=== PATIENT | male | born 1945 | race Caucasian/White ===

== ENCOUNTER 2016-09-08 00:27 | Emergency (ER) | payer MEDICARE, OTHER ==
[2016-09-08] MEDS ORDERED: ONDANSETRON ODT 4 MG TABLET ONE (00:50)
[2016-09-08] MEDS ORDERED: ONDANSETRON ODT 4 MG TABLET TL STA (00:51)
[2016-09-08] MEDS ORDERED: HYDROmorphone 1 MG/ML SYRINGE ONE (01:10)
[2016-09-08] MEDS ORDERED: ONDANSETRON 4 MG/2 ML VIAL ONE (01:10)
[2016-09-08] MEDS ORDERED: HYDROmorphone 1 MG/ML SYRINGE IVP STA (01:11)
[2016-09-08] MEDS ORDERED: ONDANSETRON 4 MG/2 ML VIAL IVP STA (01:11)
== END 2016-09-08 02:31 | disposition home or self-care (01) ==
DX: N20.0 Calculus of kidney (principal); F17.200 Nicotine dependence, unspecified, uncomplicated
CPT/HCPCS: 74176; 81001; 96374; 96375; 99283; 99284; J1170; Q0162

== ENCOUNTER 2020-10-05 12:23 | Outpatient (CLI) | payer OTHER ==
--- NOTE | 2020-10-05 15:11 | XRAY Report ---
PROCEDURE: Lumbar Spine Complete INDICATIONS: LUMBAR RADICULOPATHY TECHNIQUE: 4 views of the lumbar spine were acquired. COMPARISON: None. FINDINGS: Bones: 5 [id number] vertebrae are present. There is trace retrolisthesis of L2 on L3, L3 on L4 , L5 on S1. There is multilevel mild to moderate disc space narrowing throughout the lumbar spine. Se jacinto foraminal narrowing is noted at L5-S1, moderate to severe at L4-5. No vertebral body compression fractures. No suspicious bony lesions. Soft tissues: Overlying bowel gas pattern is normal. No suspicious soft tissue calcifications. IMPRESSION: Multilevel disc and foraminal narrowing most notable at L5-S1. Reviewed by: Suzanne Mccain MD on 10/05/2020 3:10 PM PDT Approved by: Suzanne Mccain MD on 10/05/2020 3:10 PM PDT Station ID: [id number]
== END 2020-10-05 12:24 | disposition home or self-care (01) ==
LOC: DI 12:23
PROVIDERS: ATTEND Family Medicine
DX: M47.816 Spondylosis without myelopathy or radiculopathy, lumbar region (principal); M47.817 Spondylosis without myelopathy or radiculopathy, lumbosacral region; M43.16 Spondylolisthesis, lumbar region; M43.17 Spondylolisthesis, lumbosacral region